=== PATIENT | female | born 1940 | race Caucasian/White ===

== ENCOUNTER → 2018-08-02 | Outpatient (CLI) | payer MEDICARE ==
[~2018-08-02] MED LIST: ASP81TEC PO; MELO-195 PO; OMEP20TA2 PO; SIMV20TA3 PO; TRIA1CAP4 PO
[2018-08-02 09:35] LABS: BASOPHILS # (AUTO) 0.1 10^3/uL (0.0-0.1); BASOPHILS % (AUTO) 1 % (0-10); EOSINOPHILS # (AUTO) 0.4 10^3/uL (0.0-0.3); EOSINOPHILS % (AUTO) 4 % (0-10); HEMATOCRIT 43 % (35-52); HEMOGLOBIN 14.2 G/DL (11.5-16.0); LYMPHOCYTES # (AUTO) 1.7 X 10^3 (1.0-4.0); LYMPHOCYTES % (AUTO) 19 % (12-44); MEAN CORPUSCULAR HEMOGLOBIN 32 PG (25-34); MEAN CORPUSCULAR HGB CONC 33 G/DL (32-36); MEAN CORPUSCULAR VOLUME 97 FL (80-99); MONOCYTES # (AUTO) 0.9 X 10^3 (0.0-1.0); MONOCYTES % (AUTO) 10 % (0-12); NEUTROPHILS # (AUTO) 5.7 X 10^3 (1.8-7.8); NEUTROPHILS % (AUTO) 65 % (42-75); PLATELET COUNT 238 10^3/uL (130-400); RED CELL DISTRIBUTION WIDTH 13.6 % (10.0-14.5); WHITE BLOOD COUNT 8.8 10^3/uL (4.3-11.0)
[2018-08-02 09:50] LABS: ALBUMIN 4.1 GM/DL (3.2-4.5); BILIRUBIN,TOTAL 0.6 MG/DL (0.1-1.0); CREATININE SERUM 2.03 MG/DL (0.60-1.30); POTASSIUM 3.9 MMOL/L (3.6-5.0); TOTAL PROTEIN 7.1 GM/DL (6.4-8.2)
--- NOTE | 2018-08-02 12:57 | Diagnostic Imaging Report ---
INDICATION: Routine screening. COMPARISON: 11/03/2013. TECHNIQUE: Unilateral left 2D and 3D screening mammography was performed with CAD. FINDINGS: The left breast remains heterogeneously dense, limiting the sensitivity of mammography. A left breast subpectoral implant remains in place. No mass or malignant appearing microcalcifications are seen. The left axilla is unremarkable. IMPRESSION: No mammographic features suspicious for malignancy are identified. ACR BI-RADS Category 2: Benign findings. Result letter will be mailed to the patient. Note: At least 10% of breast cancer is not imaged by mammography. Dictated by: Dictated on workstation # [id number]
== END ==
LOC: RAD 09:01
PROVIDERS: ATTEND Family Medicine
DX: Z12.31 Encounter for screening mammogram for malignant neoplasm of breast (principal); E78.2 Mixed hyperlipidemia; I10 Essential (primary) hypertension; Z85.3 Personal history of malignant neoplasm of breast; Z79.899 Other long term (current) drug therapy
CPT/HCPCS: 36415; 80053; 80061; 84443; 85025

== ENCOUNTER → 2019-03-04 | Outpatient (CLI) | payer MEDICARE ==
[~2019-03-04] MED LIST changes: +RT-ALBUTEROL SULF 2.5 MG/3 ML PRE-MIX VIAL INH ONE
[2019-03-04 10:33] LABS: CREATININE SERUM 1.71 MG/DL (0.60-1.30)
--- NOTE | 2019-03-04 13:39 | Diagnostic Imaging Report ---
PROCEDURE: CT chest without contrast. TECHNIQUE: Multiple contiguous axial images were obtained through the chest without the use of intravenous contrast. Auto Exposure Controls were utilized during the CT exam to meet ALARA standards for radiation dose reduction. INDICATION: Follow-up abnormality on chest x-ray. FINDINGS: There are no previous CT chest examinations available for comparison. There are no recent chest exams available either. The previous chest exam of 11/03/2013 did note left lower lobe atelectasis/infiltrate. If there is a more recent chest exam or report from a recent chest exam available it would be helpful. There is a small 6 mm noncalcified nodule in the right upper lobe. There is no other parenchymal lung mass identified. There are severe emphysematous changes involving both lungs and there does appear to be volume loss on the left. There are coarse interstitial densities in each lung base. I suspect these are chronic in nature. There is no confluent pneumonia or pleural effusion identified and there is no sign of overt congestive failure. The heart is enlarged and there are coronary artery calcifications evident. The aorta is not abnormally dilated. There is no obvious mediastinal or hilar adenopathy. The thyroid gland is generally unremarkable. There are bilateral breast implants in place. The implant on the left does seem much smaller than the implant on the right and I suspect that the implant on the left is ruptured. On the previous mammogram of the left breast performed on 08/02/2018 there was a small area of increased density along the inferior margin of the implant. This could be related to a lobulation in the implant or to extravasation of the implant contents. If further evaluation regarding the integrity implant is desired, then MRI would be recommended. The right breast implant is unremarkable. There are surgical clips in the right axilla consistent with a prior right mastectomy. The sections through the upper abdomen fail to show any sign of an acute abnormality. The right kidney does appear atrophic compared to the left. On the previous MRI lumbar spine exam of 08/24/2010 the kidneys seemed symmetrical. The bone windows are unremarkable for an acute fracture or for a destructive lesion. There are compression deformities of T11, L2 and L3. The compression fractures of L2 and L3 were present on the prior MRI lumbar spine exam of 08/24/2010. The compression deformity of T11 was not visualized on the prior exam. I suspect that this injury is chronic however. If there is clinical concern regarding an acute or subacute compression deformity of T11, then MRI would be recommended for additional evaluation. IMPRESSION: 1. There is severe chronic pulmonary disease but there is no evidence for an acute cardiopulmonary abnormality. 2. The small nodule in the right upper lung is of uncertain etiology. Unless there are previous CT examinations available to demonstrate that this finding is stable however, then a [address] chest exam will recommended for additional study. Also, if there is a previous recent chest exam or previous recent report from a chest exam available it would be helpful for comparison. 3. There is cardiomegaly and coronary artery disease. 4. The left breast implant appears to be ruptured. Recommendations as above. 5. There is atrophy of the right kidney. 6. The compression deformities L2 and L3 are chronic in nature. The compression fracture of T11 is also most likely long-standing. Recommendations as above. Dictated by: Dictated on workstation # [id number]
== END ==
LOC: RT 09:20
PROVIDERS: ATTEND Internal Medicine Critical Care Medicine
DX: J43.9 Emphysema, unspecified (principal); J98.4 Other disorders of lung; R91.1 Solitary pulmonary nodule; I51.7 Cardiomegaly; I25.10 Atherosclerotic heart disease of native coronary artery without angina pectoris; N26.1 Atrophy of kidney (terminal); M43.8X6 Other specified deforming dorsopathies, lumbar region; M48.54XA Collapsed vertebra, not elsewhere classified, thoracic region, initial encounter for fracture; Z98.82 Breast implant status
CPT/HCPCS: 36415; 71250; 82565; 84520; 94060; 94640; 94726; 94729

== ENCOUNTER → 2019-03-06 | Outpatient (CLI) | payer MEDICARE ==
[~2019-03-06] MED LIST changes: -RT-ALBUTEROL SULF 2.5 MG/3 ML PRE-MIX VIAL INH ONE
[2019-03-06 14:59] LABS: ABG BASE EXCESS -4.2 MMOL/L (-2.5-2.5); ABG OXYGEN SATURATION 96 % (94-100); ABG PCO2 37 MMHG (35-45); ABG PH 7.36 (7.37-7.43); ABG PO2 79 MMHG (79-93); ABG TCO2 21.5 MMOL/L (21.0-31.0)
[2019-03-06 15:00] LABS: ALLENS TEST POSITIVE; INSPIRED O2 NO; PATIENT TEMP 36.7; VENTILATOR NO
--- NOTE | 2019-03-06 15:19 | NUR ---
PATIENT WAS ON RA WITH O2 SAT 94%; PATIENT STARTED WALKING ON RA WITH O2 SAT 94% AFTER 2 MINS PATIENT WAS BREATHING HARD AND HER O2 SAT WAS 84% ON RA AND BY THE TIME RT PLACED THE NC ON PATIENT SHE DROPPED TO 82%; O2 WAS ADDED AND PATIENT WAS WALKED FOR 4 MORE MINUTES AND IT TOOK 3 L NC TO BRING O2 SAT BACK UP ABOVE 88% AND TO STAY UP. 3 L ON EXERTION WAS NEEDED RA AT REST
== END ==
LOC: RT 14:29
PROVIDERS: ATTEND Nurse Practitioner Family
DX: J30.9 Allergic rhinitis, unspecified (principal); J44.9 Chronic obstructive pulmonary disease, unspecified; R91.8 Other nonspecific abnormal finding of lung field; R94.2 Abnormal results of pulmonary function studies
CPT/HCPCS: 36600; 82805; 94761

== ENCOUNTER → 2019-05-06 | Outpatient (CLI) | payer MEDICARE ==
--- NOTE | 2019-05-06 15:36 | Diagnostic Imaging Report ---
CLINICAL INDICATION: Patient had surgery on 03/28/2019. Patient then had three weeks of memory loss and confusion with garbled speech yesterday. EXAM: Axial CT scan of the brain performed without IV contrast. COMPARISON: None. FINDINGS: There is no evidence of acute cerebral infarct, intracranial hemorrhage, or gross mass effect. The brain parenchymal volume appears appropriate for patient's age. There are mild patchy and confluent areas of low attenuation white matter changes involving both cerebral hemispheres, likely representing chronic small vessel ischemic disease and mild leukoaraiosis. There is normal rich-white matter distinction. There is no significant midline shift or herniation. There is no evidence of hydrocephalus. The basal cisterns are unremarkable. The skull, extracranial soft tissue, and orbits are unremarkable. The paranasal sinuses are unremarkable. Temporal bones show no significant abnormality. IMPRESSION: 1: There is no CT evidence of acute intracranial process. If there is continued concern for acute infarct, then MRI of the brain would better evaluate. 2: Age-related brain parenchymal changes including chronic small vessel ischemic disease and leukoaraiosis. Results of this report were discussed with nurse Valery working with Dr. Wendy Juan, via the telephone on 05/06/2019 at 1530 hours. Dictated by: Dictated on workstation # [id number]
== END ==
LOC: RAD 15:04
PROVIDERS: ATTEND Family Medicine
DX: I67.82 Cerebral ischemia (principal); G93.89 Other specified disorders of brain; I67.81 Acute cerebrovascular insufficiency; R41.3 Other amnesia; R47.9 Unspecified speech disturbances
CPT/HCPCS: 70450

== ENCOUNTER 2019-05-08 10:11 | Outpatient (CLI) | payer MEDICARE ==
[2019-05-08] MEDS ORDERED: BARIUM for suspension 98% w/w (Vanilla Silq High Density) PO ONE (10:45)
[2019-05-08] MEDS ORDERED: BARIUM for suspension 96% w/w (Vanilla Silq Medium Density) PO ONE (10:45)
--- NOTE | 2019-05-08 11:18 | Diagnostic Imaging Report ---
EXAMINATION: PA and lateral chest at 10:26 a.m. INDICATION: Difficulty swallowing. FINDINGS: The heart size is within normal limits and stable when compared to 11/03/2013. There are chronic pulmonary changes present and there may be a small amount of atelectasis/infiltrate in the left lung base. The lungs are otherwise generally clear. There are vague areas of increased density overlying each lung base and each mid lung on the PA view. These findings are similar to the prior study and may be related to overlying breast/chest tissue. As noted on the prior exam, the right breast is surgically absent. Surgical clips are again seen overlying the right axilla. The upper lungs are clear. The mediastinum is not widened. The osseous structures are intact. IMPRESSION: 1. There does appear to be mild left lower lobe atelectasis/infiltrate. There is no acute cardiopulmonary abnormality noted otherwise. 2. If clinical concern regarding an underlying abnormality persists and further imaging is desired, then CT of the chest would be recommended. Dictated by: Dictated on workstation # [id number]
--- NOTE | 2019-05-08 12:41 | Diagnostic Imaging Report ---
EXAMINATION: Barium swallow. INDICATION: Difficulty swallowing. FINDINGS: There are no prior studies available for comparison. A double contrast exam was performed. The patient swallowed the contrast material without difficulty. While the patient was erect, there was no delay or obstruction to the passage of the contrast through the esophagus. However when the patient was turned on her side and lowered to approximately 30 degrees, there was virtually no movement within the esophagus. Multiple tertiary contractions were noted. These generally indicate ineffective peristalsis and are not unusual in a patient of this age. When the patient was returned to the erect position, the contrast passed into the stomach without difficulty. There is no sign of a hiatal hernia nor is there any evidence for gastroesophageal reflux. The stomach itself shows fairly good distensibility and motility. The duodenal bulb and proximal small bowel are unremarkable. IMPRESSION: 1. Presbyesophagus. There was particularly poor motility of the esophagus when the patient was on her side or supine but no evidence for obstruction of the esophagus however. 2. There is no sign of a hiatal hernia or of gastroesophageal reflux. 3. The stomach, duodenum, and proximal small bowel are generally unremarkable. Dictated by: Dictated on workstation # [id number]
== END 2019-05-08 12:00 | disposition home or self-care (01) ==
LOC: RAD 10:11
PROVIDERS: ATTEND Family Medicine
DX: K22.8 Other specified diseases of esophagus (principal); G47.10 Hypersomnia, unspecified; I10 Essential (primary) hypertension; R13.10 Dysphagia, unspecified; R41.3 Other amnesia; R47.89 Other speech disturbances; Z98.890 Other specified postprocedural states
CPT/HCPCS: 71046; 74220

== ENCOUNTER → 2019-06-02 | Outpatient (CLI) | payer MEDICARE | LOC: CARD 13:10 | PROVIDERS: ATTEND Internal Medicine Interventional Cardiology | DX: I08.3 Combined rheumatic disorders of mitral, aortic and tricuspid valves (principal); I12.9 Hypertensive chronic kidney disease with stage 1 through stage 4 chronic kidney disease, or unspecified chronic kidney disease; N18.9 Chronic kidney disease, unspecified; J44.9 Chronic obstructive pulmonary disease, unspecified | CPT/HCPCS: 93306 ==

== ENCOUNTER → 2019-08-12 | Outpatient (CLI) | payer MEDICARE ==
[2019-08-12 12:34] LABS: BASOPHILS % (AUTO) 0 % (0-10); EOSINOPHILS % (AUTO) 0 % (0-10); HEMATOCRIT 35 % (35-52); HEMOGLOBIN 11.3 G/DL (11.5-16.0); LYMPHOCYTES # (AUTO) 0.4 X 10^3 (1.0-4.0); LYMPHOCYTES % (AUTO) 3 % (12-44); MEAN CORPUSCULAR HEMOGLOBIN 31 PG (25-34); MEAN CORPUSCULAR HGB CONC 32 G/DL (32-36); MEAN CORPUSCULAR VOLUME 96 FL (80-99); MEAN PLATELET VOLUME 9.9 FL (7.4-10.4); MONOCYTES # (AUTO) 0.2 X 10^3 (0.0-1.0); MONOCYTES % (AUTO) 1 % (0-12); NEUTROPHILS # (AUTO) 15.5 X 10^3 (1.8-7.8); NEUTROPHILS % (AUTO) 96 % (42-75); PLATELET COUNT 263 10^3/uL (130-400); RED CELL DISTRIBUTION WIDTH 13.8 % (10.0-14.5); WHITE BLOOD COUNT 16.1 10^3/uL (4.3-11.0)
[2019-08-12 13:05] LABS: ALBUMIN 3.9 GM/DL (3.2-4.5); CALCIUM 9.6 MG/DL (8.5-10.1); CREATININE SERUM 1.62 MG/DL (0.60-1.30); PHOSPHORUS 2.9 MG/DL (2.3-4.7); POTASSIUM 4.3 MMOL/L (3.6-5.0); URIC ACID 7.5 MG/DL (2.6-7.2)
[2019-08-12 13:15] LABS: URINE CREATININE FOR RATIO 35 MG/DL (30-125); URINE PROTEIN FOR RATIO ONLY < 6 MG/DL (6-12)
[2019-08-12 13:27] LABS: LYMPHOCYTES % (MANUAL) 4 %; MONOCYTES % (MANUAL) 1 %; NEUTROPHILS % (MANUAL) 95 %; RBC MORPH NORMAL
== END ==
LOC: LAB 12:04
PROVIDERS: ATTEND Internal Medicine Nephrology
DX: N18.3 Chronic kidney disease, stage 3 (moderate) (principal); D63.1 Anemia in chronic kidney disease; I12.9 Hypertensive chronic kidney disease with stage 1 through stage 4 chronic kidney disease, or unspecified chronic kidney disease; E21.2 Other hyperparathyroidism; Z79.1 Long term (current) use of non-steroidal anti-inflammatories (NSAID)
CPT/HCPCS: 36415; 80069; 82306; 82570; 82728; 83540; 83970; 84156; 84550; 85007; 85027